=== PATIENT | male | born 1950 | race Caucasian/White ===

== ENCOUNTER 2016-07-27 14:41 | Emergency (ER) | payer MEDICARE, MEDICAID ==
[~2016-07-27] VITALS: Ht 177.8 cm; Wt 93.0 kg
[~2016-07-27 14:41] MED LIST: B COMPLE4 VT; BACLOFEN10 MG PO; BACTRIM DS1 TAB VT; C 250 VT; CEFEPIME1 GM IM; CEFEPIME1 GM IV; CYMBALTA60 MG VT; DUONEB IN; FAMOTIDINE20 M1 VT; FERROUS SU VT; FLORASTOR250 M1 VT; GABAPENTIN VT; IBUPROF CH100 MG/5 M VT; INVANZ1 GM IM; LORTAB 5/3255 MG VT; MIDODRINE5 MG VT; MILK OF MAGNESIA VT; MULTIVITAM11 VT; PAIN RELIE PO; PROTEIN FORTIFIER VT; SENNA8.6 MG VT; SERTRALINE HCL50 MG VT; SOD CHLORIDE IJ; TRAMADOL HYDROC50 MG VT; TYLENOL325 MG VT; VANCOMYCIN HCL1 GM IV; [UNRECOGNIZED DRUG - OTHER] VT
[2016-07-27 16:47] LABS: HEMATOCRIT 35.7 % (39.0-50.0); HEMOGLOBIN 12.7 g/dl (14.0-18.0); IMMATURE GRANULOCYTES 0.3 % (0.0-1.0); MEAN CELL VOLUME 89.5 fL CALC (80.0-100.0); MEAN CORPUSCULAR HGB 31.8 pG CALC (26.0-32.0); MEAN CORPUSCULAR HGB CONC 35.6 g/L CALC (32.0-36.0); NEUT# 3.21 thou/uL (1.82-7.42); RED BLOOD COUNT 3.99 mill/uL (4.70-6.10); RED CELL DISTRI WIDTH 12.6 % (11.5-15.5)
[2016-07-27 17:01] LABS: ALBUMIN 3.8 g/dL (3.2-5.0); ALKALINE PHOSPHATASE 108 u/l (38-126); ANION GAP 16 (6-22 (CALC)); BILIRUBIN, TOTAL 0.5 mg/dL (0.0-1.4); BUN 22 mg/dL (8-23); BUN/CREATININE RATIO 33 (12-20 (CALC)); CALCIUM 9.5 mg/dL (8.4-10.2); CARBON DIOXIDE 24 mmol/l (22-30); CHLORIDE 92 mmol/l (95-108); CREATININE 0.6 mg/dL (0.7-1.3); GFR > 60 ML/MIN (>=60 (CALC)); GFR FOR AFR.AMER. > 60 ML/MIN (>=60 (CALC)); GLUCOSE 104 mg/dL (82-115); POTASSIUM 4.5 mmol/l (3.5-5.1); SGOT/AST 30 u/l (19-48); SGPT/ALT 45 u/l (11-66); SODIUM 128 mmol/l (137-146); TOTAL PROTEIN 7.5 g/dL (6.3-8.2)
[2016-07-27] MEDS ORDERED: NYSTATIN100000 M4 TOP (17:48)
[2016-07-27] MEDS ORDERED: RESTORIL15 MG PO (17:48)
[2016-07-27] MEDS ORDERED: MILK OF MAG30 ML/UDC PO (17:48)
[2016-07-27 17:55] LABS: URINE BILIRUBIN - DIPSTICK NEGATIVE (NEGATIVE); URINE BLOOD DIPSTICK SMALL (NEGATIVE); URINE COLOR YELLOW; URINE GLUCOSE - DIPSTICK NEGATIVE (NEGATIVE); URINE KETONE NEGATIVE (NEGATIVE); URINE PROTEIN - DIPSTICK TRACE mg/dL (NEG-TRACE); URINE UROBILINOGEN - DIPSTICK 0.2 E.U./dL (0.2)
[2016-07-27 17:57] LABS: URINE CLARITY CLOUDY; URINE LEUK ESTERASE LARGE (NEGATIVE); URINE NITRITE - DIPSTICK POSITIVE (Negative)
[2016-07-27 17:58] LABS: URINE BACTERIA MANY hpf; URINE EPITHELIAL CELLS MODERATE EPI/hpf (0-FEW); URINE WBC 20-50 WBC/hpf (0-5)
[2016-07-27] MEDS ORDERED: BACTRIM DS1 TAB PO (18:03)
[2016-07-27 20:45] VITALS: BP 128/74
== END 2016-07-27 20:40 ==
LOC: ED 14:41 → ED-I 18:03 → ED 20:40
PROVIDERS: Emergency Medicine
DX: K43.9 Ventral hernia without obstruction or gangrene (principal); N39.0 Urinary tract infection, site not specified; Z43.1 Encounter for attention to gastrostomy; B96.20 Unspecified Escherichia coli [E. coli] as the cause of diseases classified elsewhere; Z16.12 Extended spectrum beta lactamase (ESBL) resistance